=== PATIENT | male | born 1945 | race Caucasian/White ===

== ENCOUNTER 2024-09-18 14:56 | Emergency (ER) | payer MEDICARE, OTHER, SELFPAY ==
[2024-09-18 15:00] VITALS: BP 160/73
--- NOTE | 2024-09-18 15:05 | ED.GENMED ---
ED Provider Triage
<Tabatha Mcmanus PA-C - Last Filed: 09/20/24 07:28>
-
Patient seen by provider in Triage?: Seen in Triage
79-year-old male history of chronic kidney disease, hypertension, diabetes, hyperlipidemia, presents with atraumatic left knee pain for the past 3 days. It is a little bit swollen. He has been wearing a sleeve brace which helps a little bit. The
pain is worse with flexion and weightbearing. He has not taken anything today for pain. There is no redness, no history of gout
A medical screening examination has been initiated by a qualified medical provider. Based on the assessment performed at this time, it has been determined that an emergent medical condition may exist and the patient has been informed that further
medical evaluation and possible additional diagnostic testing may be needed.
HPI: This is a medical evaluation conducted in person to initiate diagnostic evaluation and provide initial therapeutics. Please see further documentation by the treating clinician.
GENERAL: Alert , in no apparent distress
ENT: No visible abnormalities
LUNGS: No acute respiratory distress
NEUROLOGICAL: Alert and oriented
SKIN: Skin intact. No visible changes.
MUSCULOSKELETAL: Unable to visualize any due to brace, there does seem to be a slight effusion, he has painful flexion and extension, no calf tenderness
PSYCH: Normal and appropriate interaction..
History of Present Illness
<Tabatha Mcmanus PA-C - Last Filed: 09/20/24 07:28>
General
Chief Complaint: Musculo-Skeletal Complaint
Time Seen by Provider: 09/18/24 15:54
<Savi Paez NP - Last Filed: 09/18/24 21:49>
General
Source: patient
Exam Limitations: none
Nursing documentation reviewed up to this point in time: agreed with
History of Present Illness
History of Present Illness:
Patient to ED wt complaint of progressively worsening left posterior knee pain. SYmptoms started 3 days ago. Yesterday he wore a compression sleeve and pain was tolerable. TOday sleeve is not helping and he is having difficulty with weight
bearing. Denies any history of trauma. Denies fever/chills, recent illness. No erythema or swelling. Brought to ED by family for eval.
Past History
<Tabatha Mcmanus PA-C - Last Filed: 09/20/24 07:28>
Past History
ED Past Medical History: CAD, GERD, HTN, Hypercholesterolemia, NIDDM and Hypothyroidism
ED Past Surgical History: Cardiac (Pacemaker)
Social History
Tobacco: Former smoker
Alcohol: Other
Drug: None
Personal:
Living: with family
Employment: Other
Family History
Family History: Other
Phy Exam
<Savi Paez NP - Last Filed: 09/18/24 21:49>
General Physical Exam
General Presentation: well appearing and mild distress
General age: appears stated age
General Skin: warm and dry
General Habitus: normal
General Mental: alert
General Hydration: appears well hydrated
Musculoskeletal Exam
Musculoskeletal Exam: neuro vasc intact
Skin Exam
Skin Exam: normal color, warm/dry and no rash
Psychiatric Exam
Psychiatric Exam: normal mood/affect
Course
<Tabatha Mcmanus PA-C - Last Filed: 09/20/24 07:28>
Orders/Labs/Results
Orders:
Orders
09/18/24 15:05
CR Knee - Left 4 Or More View* Urgent
Comment:
Reason For Exam: left knee pain/swelling no trauma
09/18/24 15:59
US Periph Venous LOWER Ext LT Urgent
Comment:
Reason For Exam: posterior knee pain
09/18/24 17:15
Knee Immobilizer Left-Treatmen ONCE
Vital Signs
Initial and Last Documented VS:
Initial Vital Signs
Temp Pulse Resp Pulse Ox
37.3 C 71 16 98
09/18/24 14:58 09/18/24 14:58 09/18/24 14:58 09/18/24 14:58
Last Documented Vital Signs
Temp Pulse Resp BP Pulse Ox
37.3 C 74 20 128/63 98
09/18/24 14:58 09/18/24 17:26 09/18/24 17:26 09/18/24 17:26 09/18/24 14:58
<Savi Paez NP - Last Filed: 09/18/24 21:49>
Orders/Labs/Results
Orders:
Orders
09/18/24 15:05
CR Knee - Left 4 Or More View* Urgent
Comment:
Reason For Exam: left knee pain/swelling no trauma
09/18/24 15:59
US Periph Venous LOWER Ext LT Urgent
Comment:
Reason For Exam: posterior knee pain
09/18/24 17:15
Knee Immobilizer Left-Treatmen ONCE
Vital Signs
Initial and Last Documented VS:
Initial Vital Signs
Temp Pulse Resp Pulse Ox
37.3 C 71 16 98
09/18/24 14:58 09/18/24 14:58 09/18/24 14:58 09/18/24 14:58
Last Documented Vital Signs
Temp Pulse Resp BP Pulse Ox
37.3 C 74 20 128/63 98
09/18/24 14:58 09/18/24 17:26 09/18/24 17:26 09/18/24 17:26 09/18/24 14:58
<Savi Paez NP - Last Filed: 09/18/24 21:49>
*Radiology
Radiology exam reviewed: radiology read reviewed
*Pulse Oximetry
Patient hypoxic: no
*Critical Care Note
Total Time (30-74mins, 75-104mins- exclusive of procedures): Not Applicable
<Savi Paez NP - Last Filed: 09/18/24 21:49>
Update Note
Update Note:
Patient to ED with complaint of left posterior knee pain. No history of trauma. Xray neg for fracture or effusion. US neg for DVT. No erythema or swelling on exam. WIll place in knee immobilizer, discharge home. He will call in AM to schedule
follow up appointment with his PCP
ED Attending Note
<Tabatha Mcmanus PA-C - Last Filed: 09/20/24 07:28>
-
Portions of this chart may have been created with voice recognition software.� Occasional wrong word or��sound alike� substitutions may have occurred due to the inherent limitations of voice recognition software.
Discharge Plan
Departure
Patient Disposition: Home (Routine Discharge)
Date of Disposition: 09/18/24
Time of Disposition: 17:18
Patient with high blood pressure during this ER visit?: No
Condition: Good
Covid-19: Not Applicable
Discharge Problem:
Acute knee pain
Instructions: Knee Immobilizer (DC), Knee Pain (DC), Using Cold for Pain
Prescriptions:
New
hydrocodone-acetaminophen 5-325 mg tablet
1 tab PO Q4H PRN (Reason: Pain) Qty: 12 0RF
No Action
metoprolol succinate 100 MG tablet extended release 24 hr
150 mg PO BID
aspirin [Adult Aspirin Regimen] 81 MG tablet,delayed release (DR/EC)
81 mg PO DAILY
tamsulosin [Flomax] 0.4 MG capsule
0.4 mg PO DAILY
ezetimibe [Zetia] 10 MG tablet
10 mg PO DAILY
citalopram 20 mg Tablet
20 mg PO DAILY
pravastatin 10 mg Tablet
10 mg PO MOWEFR@2200
Rx Instructions:
x3 weekly
sodium bicarbonate 650 mg Tablet
650 mg PO BID
montelukast [Singulair] 10 mg Tablet
10 mg PO DAILY
ipratropium bromide 21 mcg (0.03 %) Levasy,Non-Aerosol
2 spray INTRANASAL BID
ranolazine [Ranexa] 500 mg Tablet Extended Release 12 Hr
500 mg PO DAILY
insulin glargine [Lantus Solostar U-100 Insulin] 100 unit/mL (3 mL) Insulin Pen
29 unit SC HS
prasugrel [Effient] 10 mg Tablet
10 mg PO DAILY
multivitamin Tablet
1 tab PO DAILY
niacin 1,000 mg tablet extended release 24 hr
1,000 mg PO BID
isosorbide mononitrate 60 mg tablet extended release 24 hr
60 mg PO BID
famotidine [Pepcid AC] 20 mg Tablet
20 mg PO BID
levothyroxine 125 mcg tablet
125 mcg PO DAILY AT 0700
nitroglycerin [Nitrostat] 0.4 mg tablet, sublingual
0.4 mg sublingual PRN PRN (Reason: chest pain)
glipizide 5 mg tablet
5 mg PO AC
guaifenesin [Mucinex] 600 mg Tablet Extended Release 12hr
600 mg PO Q12 Qty: 20 0RF
nifedipine 60 mg Tablet Extended Release
60 mg PO DAILY Qty: 30 0RF
oseltamivir 6 mg/mL Suspension For Reconstitution
30 mg PO DAILY Qty: 3 0RF
Referrals:
Ruben Blunt MD [Active] - Next open appointment
Anmol Amaya DO [Family Provider] -
Interventions
Interventions:
*Risk Screen - Suicide Last Done: 09/18/24 15:00
*General Assessment Last Done: 09/18/24 17:37
*Neglect/Abuse Screening Last Done: 09/18/24 15:00
*ED COVID-19 Vaccine History Last Done: 09/18/24 15:00
*Nursing Disposition Last Done: 09/18/24 17:37
ED-Musculoskeletal Assessment Last Done: 09/18/24 16:43
Discharge Date and Time
Discharge Date/Time: 09/18/24 17:37
Print Language: KENYAN
Musculoskeletal Injury Exam
<Savi Paez NP - Last Filed: 09/18/24 21:49>
Musculoskeletal Injury Exam
Left Posterior Knee:
Pain with Movement?: Moderate
Tender to palpation?: Moderate
Soft tissue swelling?: None
External deformity and angulation?: None
Joint effusion?: None
Contusion?: None
Hematoma-local bleeding into tissue?: None
Strain- Sprain- Tear (Connective tissue injury)?: None
Crepitus with movement?: No
Joint instability?: No
Malalignment/deformity?: No
Range of motion: Limited
Distal skin color and temperature: normal-warm & good color
Capillary Refill: normal
Normal distal neurovascular exam?: Yes
Peripheral Pulses: posterior tibial (left): 3+ and dorsalis pedis (left): 3+
[2024-09-18 17:26] VITALS: BP 128/63
== END 2024-09-18 17:37 | disposition home or self-care (01) ==
LOC: EMR 14:56
PROVIDERS: EMERGENCY PHYSICIAN Emergency Medicine; FAMILY PHYSICIAN Family Medicine
DX: M25.562 Pain in left knee (principal); I25.10 Atherosclerotic heart disease of native coronary artery without angina pectoris; K21.9 Gastro-esophageal reflux disease without esophagitis; I10 Essential (primary) hypertension; E78.00 Pure hypercholesterolemia, unspecified; E11.9 Type 2 diabetes mellitus without complications; E03.9 Hypothyroidism, unspecified; Z87.891 Personal history of nicotine dependence; Z95.0 Presence of cardiac pacemaker
CPT/HCPCS: 29505; 99284; 73564; 93971